=== PATIENT | female | born 1950 | race Caucasian/White ===

== ENCOUNTER 2017-06-02 12:12 | Emergency (ER) | payer MEDICARE, OTHER ==
[2017-06-02 13:01] LABS: Mean Cell Volume 78.4 fl (78-100); Mean Corpuscular Hemoglobin 24.5 pg (27-31); Mean Corpuscular Hgb Conc 31.2 g/dl (32-36); Mean Platelet Volume 10.3 fl (6.0-9.5); Neutrophil # 3.8 K/mm3 (1.3-6.0); Neutrophil % 65.6 % (42-75.0); Platelet Count 197 K/mm3 (150-450); Red Blood Count 3.19 M/mm3 (4.2-5.4); Red Cell Distribution Width 15.6 % (11.5-14.0); White Blood Count 5.8 K/mm3 (4.0-10.5)
[2017-06-02 13:03] LABS: Hemoglobin 7.8 gm/dL (12.5-16.0)
--- NOTE | 2017-06-02 13:22 | ERNOTE ---
Medical Problem HPI - General Chief Complaint: General Assessment Time Seen by Provider: 06/02/17 12:28 Source: patient Exam Limitations: no limitations - Immun/Allergies/Home Medications Immunizations: IMMUNIZATION HX Immunizations Up to Date Yes History of Influenza Vaccine Yes Hx Pneumococcal Vaccination Yes Allergies/Adverse Reactions: Allergies Iodinated Contrast- Oral and IV Dye [Iodinated Contrast Media - IV Dye] Allergy (Verified 11/30/15 15:11) morphine Allergy (Verified 11/30/15 15:11) pregabalin [From Lyrica] Allergy (Verified 11/30/15 15:11) Home Medications: HOME MEDICATIONS Diazepam [Valium] 5 mg PO HS 11/30/15 [Last Taken Unknown] Metoprolol Succinate 25 mg PO DAILY 11/30/15 [Last Taken Unknown] traMADol HCL [Ultram] 50 mg PO BID 11/30/15 [Last Taken Unknown] - History of Present History Narrative: 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 She states that she has been extremely tired and fatigued she has noted conjunctivae are pallor upon examination of her eyes and she decided to go see internal medicine. Patient denies any chest pains she does state that she's been slightly short of breath. He denies any cough she denies any hematemesis she denies any melena or hematochezia she states her stools are not black or tarry. she has had some mid epigastric discomfort and a slight amount of nausea off and on over the past week. She also states that she has had some air hunger and shortness of breath "just like when I had my PE" Review of Systems - Review of Systems Constitutional: Present: weakness, fatigue EYE: Present: no symptoms reported ENT: Present: no symptoms reported Respiratory: Present: See HPI Cardiology: Present: no symptoms reported Gastrointestinal/Abdominal: Present: See HPI, nausea, constipation. Absent: vomiting Genitourinary: Present: no symptoms reported Musculoskeletal: Present: no symptoms reported Skin: Present: no symptoms reported Neurological: Present: no symptoms reported - Patient's Past Medical History Patient History - Medical: No pertinent hx Patient History - Cardiac/Respiratory: No pertinent hx Patient History - Cancer: No Hx of Cancer Patient History - Surgical Procedures: , Other Patient History - Other: None - Social History Living Situations: spouse Abuse History: No History of abuse Psych History: No pertinent hx Smoking Status: Never smoker Have you smoked in the past 12 months: No Alcohol Use: none Drug Use: none - Immunizations Immunizations Up to Date: Yes Hx Pneumococcal Vaccination: Yes History of Influenza Vaccine: Yes Physical Exam - Physical Exam General Appearance: Present: wd/wn, alert, no apparent distress - patient does appear to be somewhat pale. She appears in no distress Eye Exam: Normal inspection: bilateral, PERRL: bilateral, EOMI: bilateral, Other : bilateral - lateral conjunctiva pallor noted Ears, Nose, Throat: Present: normal ENT inspection Neck: Present: normal inspection, nontender, supple Respiratory: Present: no respiratory distress, normal breath sounds, no accessory muscle use, chest nontender, lungs clear Cardiovascular/Chest: Present: regular rate, rhythm, no murmur, normal peripheral pulses Gastrointestinal/Abdominal: Present: normal bowel sounds, nontender, nondistended, soft, no organomegaly Extremity Exam: Present: normal inspection, normal range of motion Neurological Exam: Present: alert, oriented, normal mood/affect ED Progress - Results and Orders Patient's Lab Results:: I have reviewed the patient's lab results. - Vital Signs Patient's Vital Signs:: I have reviewed the patient's vital signs. Vital Signs: Vital Signs 06/02/17 06/02/17 06/02/17 12:20 12:42 12:58 Temperature 36.6 C Pulse Rate 67 65 65 Respiratory 20 14 15 Rate Blood Pressure 119/65 136/58 148/102 06/02/17 13:12 Temperature Pulse Rate 69 Respiratory 20 Rate Blood Pressure 136/109 - Progress/Reassessment Chief Complaint: General Assessment Plan - Plan Plan: This patient appears to have chronic anemia her hemoglobin is 7.8. At this time this patient will be transfused with 1 unit of packed red blood cells. Following that she will be discharged to follow up with Dr. Monet tomorrow for repeat hemoglobin and perhaps in the other diagnostic studies that may investigate the cause of her anemia.. Departure - Departure Clinical Impression: Elevated d-dimer Anemia Qualifiers: Anemia type: unspecified type Qualified Code(s): D64.9 - Anemia, unspecified Instructions: Blood Transfusion, [id number], Iron Deficiency Anemia, Adult Additional Instructions: Go to the [facility] at discharge for 1 unit of PRBC Follow up appointment with Dr. Barrera at 9:30 to have your hemoglobin rechecked. Referrals: Dalton Zabala MD [Primary Care Provider] -
[2017-06-02 13:25] LABS: Albumin * 3.4 gm/dl (3.4-5.0); Anion Gap 9.5 mmol/L (6.8-13.8); BUN/Creatinine Ratio 26.3 (9.0-21.6); Bilirubin, Total 0.2 mg/dL (0.0-1.1); Ca. Corrected For Albumin 8.7 mg/dL (8.4-10.2); Calcium * 8.5 mg/dL (7.9-10.9); Potassium 4.5 mmol/L (3.4-4.6); TSH * 2.272 uIU/mL (0.358-3.74); Total Protein 6.4 gm/dL (6.2-8.2)
[2017-06-02] MEDS ORDERED: diphenhydrAMINE HCL 50 MG/ML VIAL IV ONE (13:49)
[2017-06-02] MEDS ORDERED: FAMOTIDINE 10 MG/ML VIAL IV ONE ×2 (13:49→14:08)
[2017-06-02] MEDS ORDERED: METHYLPREDNISOLONE SOD SUCC/PF 40 MG/ML VIAL IV ONE (13:50)
[2017-06-02] MEDS ORDERED: diphenhydrAMINE HCL 50 MG/ML VIAL ONE (14:08)
[2017-06-02] MEDS ORDERED: METHYLPREDNISOLONE SOD SUCC/PF 40 MG/ML VIAL ONE (14:08)
[2017-06-02 16:47] VITALS: BP 109/55
== END 2017-06-02 16:48 | disposition home or self-care (01) ==
LOC: ER 12:12
DX: D64.9 Anemia, unspecified (principal); R79.1 Abnormal coagulation profile